=== PATIENT | female | born 1975 | race Caucasian/White ===

== ENCOUNTER 2017-10-09 16:46 | Emergency (ER) | payer OTHER ==
[~2017-10-09] VITALS: Ht 149.9 cm; Wt 63.5 kg
[2017-10-09] MEDS ORDERED: NEURONTIN 300300 M1 PO (16:57)
[2017-10-09] MEDS ORDERED: VISTARIL 25 MG25 M1 PO (16:57)
[2017-10-09 17:38] VITALS: BP 122/73
== END 2017-10-09 17:39 | disposition home or self-care (01) ==
LOC: M.ERS 16:46
DX: S92.532A Displaced fracture of distal phalanx of left lesser toe(s), initial encounter for closed fracture (principal); F41.9 Anxiety disorder, unspecified; G25.81 Restless legs syndrome; Z88.0 Allergy status to penicillin; Z88.1 Allergy status to other antibiotic agents; Z90.710 Acquired absence of both cervix and uterus; W23.0XXA Caught, crushed, jammed, or pinched between moving objects, initial encounter; Y93.89 Activity, other specified; Y92.89 Other specified places as the place of occurrence of the external cause; Y99.8 Other external cause status